=== PATIENT | female | born 1995 | race Caucasian/White ===

== ENCOUNTER 2018-01-09 17:41 | Emergency (ER) | payer SELFPAY ==
[~2018-01-09] VITALS: Ht 160 cm; Wt 85.1 kg
[~2018-01-09 17:41] MED LIST: ALBUTEROL0.83 MG/ML IH; CATAPRES 0.1MG0.1 MG PO; DEPAKOTE ER 50500 MG PO; FLEXERIL 1010 MG/TAB PO; KLONOPIN 0.5MG0.5 MG PO; LEVOXYL0.175 MG PO; LIORESAL 1010 MG/TAB PO; NEURONTIN100 MG/CAP PO; NEURONTIN300 MG/CAP PO; NORCO 325 MG-51 TAB PO; NORCO 325 MG-7.1 TAB; PAXIL 20MG20 MG PO; PERCOCET 325 MG1 TA2 PO; PREDNISONE20 MG PO; PROMACTA50 MG PO; PROVENTIL0.09 MG/A1 IH; SYNTHROID0.112 MG/T PO; TAPAZOLE10 MG; ULTRAM 50MG TAB50 MG PO; WELLBUTRIN 100100 MG PO; ZANAFLEX CAPSULE4 MG PO; ZOFRAN 4MG T4 MG/TAB PO; ZOFRAN ODT4 MG PO; ZOVIRAX400 MG PO
[2018-01-09 17:52] VITALS: TEMP 97.6
[2018-01-09 19:03] VITALS: BP 113/77; PULSE 84
== END 2018-01-09 19:04 | disposition home or self-care (01) ==
LOC: COL.ER 17:41
DX: R21 Rash and other nonspecific skin eruption (principal); E07.9 Disorder of thyroid, unspecified; M79.7 Fibromyalgia; F17.210 Nicotine dependence, cigarettes, uncomplicated; Z86.2 Personal history of diseases of the blood and blood-forming organs and certain disorders involving the immune mechanism; Z90.81 Acquired absence of spleen; Z90.49 Acquired absence of other specified parts of digestive tract
CPT/HCPCS: J1100

== ENCOUNTER 2018-02-01 00:37 | Emergency (ER) | payer SELFPAY ==
[~2018-02-01] VITALS: Ht 160 cm; Wt 84.9 kg
[2018-02-01 00:47] VITALS: BP 117/72; PULSE 97; TEMP 98.9
[2018-02-01] MEDS ORDERED: LYRICA 75MG CAP75 MG PO (01:22)
[2018-02-01] MEDS ORDERED: CYMBALTA 30MG30 MG PO (01:23)
== END 2018-02-01 01:25 | disposition home or self-care (01) ==
LOC: COL.ER 00:37
DX: B35.8 Other dermatophytoses (principal); L30.9 Dermatitis, unspecified; F43.10 Post-traumatic stress disorder, unspecified; F17.210 Nicotine dependence, cigarettes, uncomplicated; Z86.19 Personal history of other infectious and parasitic diseases; Z86.2 Personal history of diseases of the blood and blood-forming organs and certain disorders involving the immune mechanism; Z90.81 Acquired absence of spleen; Z98.890 Other specified postprocedural states

== ENCOUNTER 2018-05-26 01:24 | Emergency (ER) | payer SELFPAY ==
[~2018-05-26 01:24] MED LIST changes: +CYMBALTA 30MG30 MG PO; -LEVOXYL0.175 MG PO; +LEVOXYL0.2 MG PO; +LYRICA 75MG CAP75 MG PO
[2018-05-26 01:27] VITALS: BP 143/91; TEMP 98.7
[2018-05-26 02:05] LABS: BASO % 0.4 % (0.0-2.0); EOS # 0.2 (0.0-0.7); EOS % 2.3 % (0-4.0); GRAN # 4.7 (1.4-6.5); GRAN % 44.8 % (42.2-75.2); HEMATOCRIT 36.9 % (37.0-47.0); HEMOGLOBIN 12.7 g/dl (12.5-16.0); LYMPH # 4.7 (1.2-3.4); LYMPH % 44.7 % (20.0-51.0); MEAN CELL VOLUME 93 fl (80.0-100.0); MEAN CORPUSCULAR HEMOGLOBIN 32 pg (27.0-31.0); MEAN CORPUSCULAR HGB CONC 34 g/dl (33.0-37.0); MEAN PLATELET VOLUME 9.2 fl (7.4-10.4); MONO # 0.8 (0.1-0.6); MONO % 7.6 % (1.7-9.3); PLATELET COUNT 480 K/mm3 (130-400); RED BLOOD COUNT 3.97 M/mm3 (4.10-5.30); REDCELL DISTRIBUTION WIDTH-CV 13.4 % (11.5-14.5)
[2018-05-26 02:15] LABS: ALANINE AMINOTRANSFERASE 23 U/L (9-52); ALBUMIN 4.9 gm/dL (3.5-5.0); ALKALINE PHOSPHATASE 64 U/L (50-136); ANION GAP 11 mmol/L (7-16); AST,SGOT 32 U/L (15-37); BILIRUBIN,TOTAL 0.6 mg/dL (0.0-1.0); BLOOD UREA NITROGEN 12 mg/dL (7-17); CALCIUM 9.9 mg/dL (8.4-10.2); CARBON DIOXIDE 27 mmol/L (22-30); CHLORIDE 102 mmol/L (98-107); GLUCOSE 85 mg/dL (74-106); LIPASE 160 U/L (23-300); SODIUM 140 mmol/L (137-145); TOTAL PROTEIN 8.5 gm/dL (6.4-8.2)
[2018-05-26 02:22] LABS: C-REACTIVE PROTEIN < 0.5 mg/dL (0.0-0.9); POTASSIUM 3.3 mmol/L (3.4-5.0)
[2018-05-26 02:33] LABS: COLLECTION METHOD CLEAN CATCH
[2018-05-26 02:39] LABS: MUCOUS Present /lpf; PH 6 (5-8); URINE APPEARANCE Hazy; URINE BACTERIA None Seen /hpf; URINE BILIRUBIN Negative (NEGATIVE); URINE BLOOD 2+ (NEGATIVE); URINE COLOR Yellow; URINE GLUCOSE Negative (NEGATIVE); URINE KETONE Negative (NEGATIVE); URINE LEUKOCYTE ESTERASE Trace (NEGATIVE); URINE NITRATE Negative (NEGATIVE); URINE PROTEIN(semi-quant) Negative (NEGATIVE); URINE UROBILINOGEN Negative (NEGATIVE)
[2018-05-26] MEDS ORDERED: OMNICEF 300MG300 MG PO (03:35)
[2018-05-26] MEDS ORDERED: ZOFRAN ODT4 MG PO (03:35)
[2018-05-26 04:35] VITALS: PULSE 90
== END 2018-05-26 04:35 | disposition home or self-care (01) ==
LOC: COL.ER 01:24
PROVIDERS: Physician Assistant
DX: N39.0 Urinary tract infection, site not specified (principal); M79.7 Fibromyalgia; G40.909 Epilepsy, unspecified, not intractable, without status epilepticus; E05.00 Thyrotoxicosis with diffuse goiter without thyrotoxic crisis or storm; K58.9 Irritable bowel syndrome, unspecified; F17.210 Nicotine dependence, cigarettes, uncomplicated; Z90.49 Acquired absence of other specified parts of digestive tract; Z98.890 Other specified postprocedural states
CPT/HCPCS: J0696; J2405; J3010; J7030; Q9967

== ENCOUNTER → 2021-11-01 | Outpatient (CLI) | payer OTHER ==
[~2021-11-01] MED LIST changes: +OMNICEF 300MG300 MG PO
== END ==
LOC: COL.RAD 12:30
DX: G43.909 Migraine, unspecified, not intractable, without status migrainosus (principal); M51.16 Intervertebral disc disorders with radiculopathy, lumbar region

== ENCOUNTER → 2021-11-10 | Outpatient (CLI) | payer OTHER | LOC: COL.RAD 11-01 12:30 | DX: J32.0 Chronic maxillary sinusitis (principal); G43.109 Migraine with aura, not intractable, without status migrainosus; G40.909 Epilepsy, unspecified, not intractable, without status epilepticus ==